=== PATIENT | female | born 1980 | race Caucasian/White ===

== ENCOUNTER → 2019-04-16 | Outpatient (CLI) | payer BC, OTHER ==
[2014-06-25 13:30] VITALS: BP 123/71
[~2019-04-16] MED LIST: CYCL10TA2 PO; DOCU-109 PO; DOCU100C53 PO; HYDR-2765 PO; Hydrocodone/Acetaminophen PO; LISI-334 PO
--- NOTE | 2019-04-16 15:21 | RAD ---
CERVICAL SPINE WO CONTRAST History: Radiculopathy. Neck pain. Technique: Multiplanar, multi sequential noncontrast MR imaging was performed of the cervical spine. Comparison: None Findings: Normal vertebral body height and alignment. No fracture. Normal appearance of the cervical spinal cord. No pathologic signal abnormality. Left maxillary sinus mucous retention cyst or polyp. Tiny pars intermedia cyst. C2-C3: No canal or neuroforaminal narrowing. C3-C4: Minimal posterior disc bulge. No canal or neuroforaminal narrowing. C4-C5: Minimal posterior disc bulge. No canal or neuroforaminal narrowing. C5-C6: Posterior disc bulge. No canal or neuroforaminal narrowing. C6-C7: No canal or neuroforaminal narrowing. C7-T1: No canal or neuroforaminal narrowing. Impression: 1. Mild multilevel cervical spondylosis. No significant canal or neuroforaminal narrowing. Electronically signed by: Deuce Sheriff DO (04/16/2019 3:18 PM) [email or web address]
== END | disposition home or self-care (01) ==
LOC: MRI 11:27
PROVIDERS: ATTEND Neurological Surgery
DX: M47.892 Other spondylosis, cervical region (principal); M54.12 Radiculopathy, cervical region
CPT/HCPCS: 72141